=== PATIENT | female | born 1985 | race Caucasian/White ===

== ENCOUNTER 2024-05-01 05:55 | Emergency (ER) | payer OTHER, SELFPAY ==
[2024-05-01] VITALS (12 sets, daily range): BP systolic 91–130; BP diastolic 57–101; BMI 18.2
[2024-05-01 07:01] LABS: % Basophils 0.5 % (0-2); % Eosinophils 1.1 % (0-6); % Immature Granulocytes 0.5 % (0-0.5); % Lymphocytes 13.6 % (20.5-51.1); % Monocytes 5.9 % (1.7-9.3); % Neutrophils 78.4 % (42.2-75.2); Absolute Eosinophils 0.1 10^3/uL (0-0.7); Absolute Lymphocytes 0.9 10^3/uL (1.2-3.4); Absolute Monocytes 0.4 10^3/uL (0.1-0.6); Absolute Neutrophils 5.2 10^3/uL (1.4-6.5); Hematocrit 35.2 % (37.0-47.0); Hemoglobin 12.1 g/dL (12.0-16.0); Mean Corp Hgb Conc. 34.4 g/dL (33.0-37.0); Mean Corpuscular Hgb 29.9 pg (27.0-31.0); Mean Corpuscular Volume 86.9 fL (81.0-99.0); Mean Platelet Volume 9.5 fL (7.4-10.4); Nucleated Red Blood Cells % 0 %; Platelet Count 237 10^3/uL (130-400); Red Blood Cell Count 4.05 10^6/uL (4.20-5.40); Red Cell Dist. Width 12.5 % (11.5-14.5); White Blood Cell Count 6.6 10^3/uL (4.8-10.8)
[2024-05-01 07:12] LABS: ALT (SGPT) 28 U/L (0-35); AST (SGOT) 34 U/L (14-36); Albumin 3.9 g/dl (3.5-5.0); Alkaline Phosphatase 106 U/L (38-126); Blood Urea Nitrogen 13 mg/dl (7-17); Calcium 8.9 mg/dl (8.4-10.2); Carbon Dioxide 29 mmol/L (22-30); Chloride 100 mmol/L (98-107); Glucose 115 mg/dl (70-99); Potassium 3.7 mmol/L (3.5-5.1); Sodium 139 mmol/L (135-145); Total Bilirubin 0.7 mg/dl (0.2-1.3); Total Protein 6.8 g/dl (6.3-8.2); eGFR > 60.00
[2024-05-01 07:30] LABS: COVID-19 Antigen Negative (Negative)
[2024-05-01 07:39] LABS: Urine Albumin 2+ (Neg - Trace); Urine Bilirubin Negative (Negative); Urine Character Slightly Cloudy (Clear); Urine Color Yellow; Urine Glucose Negative (Negative); Urine Ketone Negative (Negative); Urine Leukocyte 2+ (Negative); Urine Nitrite Negative (Negative); Urine Occult Blood 2+ (Negative); Urine Urobilinogen 2+ (Neg - 1+)
[2024-05-01 07:40] LABS: HCG, Urine Qualitative Screen Negative
[2024-05-01 07:48] LABS: Urine Bacteria Few (Negative); Urine Squamous Cell >30 /LPF (Few)
[2024-05-01 07:49] LABS: Urine Red Blood Cell 0-2 /HPF (0-2)
[2024-05-01] MEDS: TORADOL 15 MG IV (07:49)
[2024-05-01 07:50] LABS: Urine Mucus Few
[2024-05-01] MEDS: TYLENOL 1000 MG PO (07:50)
[2024-05-01] MEDS: NSS 1000 IV (07:50)
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
[2024-05-01] MEDS: ZITHROMAX 500 MG PO (10:15)
[2024-05-01] MEDS: ROCEPHIN 2000 MG IV (10:18)
== END 2024-05-01 14:25 | disposition home or self-care (01) ==
LOC: EMR 05:55
PROVIDERS: Physician Assistant; Student in an Organized Health Care Education/Training Program; EMERGENCY PHYSICIAN Student in an Organized Health Care Education/Training Program; FAMILY PHYSICIAN Family Medicine
DX: J18.9 Pneumonia, unspecified organism (principal); Z11.52 Encounter for screening for COVID-19; F17.200 Nicotine dependence, unspecified, uncomplicated
CPT/HCPCS: 99284; 96374; 96375; 96361; 71046; 80053; 81003; 81015; 81025; 85025; 87086; 87502; 87811